=== PATIENT | female | born 1950 | race Asian ===

== ENCOUNTER → 2017-02-11 | Outpatient (CLI) | payer OTHER | END | disposition home or self-care (01) | LOC: MA 10:38 | DX: Z12.31 Encounter for screening mammogram for malignant neoplasm of breast (principal) | CPT/HCPCS: G0202 ==

== ENCOUNTER → 2017-06-23 | Outpatient (CLI) | payer OTHER ==
[2017-06-23 16:05] LABS: BASOPHIL % 0.3 % (0-2); PLATELET COUNT 329 x10^3mcL (130-400); RED CELL DISTRIBUTION WIDTH 13.6 % (11.5-14.5)
[2017-06-23 16:32] LABS: ALBUMIN 3.6 g/dL (3.4-5.0); ALKALINE PHOSPHATASE 85 U/L (46-116); ALT/SGPT 30 U/L (14-59); AST/SGOT 20 U/L (15-37); BILIRUBIN TOTAL 0.38 mg/dL (0.20-1.00); CARBON DIOXIDE 27.4 mmol/L (21-32); CHLORIDE SERUM 104 mmol/L (98-107); CREATININE SERUM 0.8 mg/dL (0.6-1.0); FREE T4 1.08 ng/dL (0.76-1.46); GFR1 > 60 mL/min; GLUCOSE SERUM 124 mg/dL (74-106); POTASSIUM SERUM 3.4 mmol/L (3.5-5.1); SODIUM SERUM 142 mmol/L (136-145)
[2017-06-23 16:33] LABS: TOTAL PROTEIN, SERUM 8.8 g/dL (6.4-8.2)
[2017-06-23 20:08] LABS: microscopic required? YES; urine erythrocyte TRACE (NEGATIVE)
== END | disposition home or self-care (01) ==
LOC: US 15:18
PROC: BW40ZZZ Ultrasonography of Abdomen (ICD-10-PCS; principal; 2017-06-23)
DX: R10.9 Unspecified abdominal pain (principal); K76.89 Other specified diseases of liver
CPT/HCPCS: 84439

== ENCOUNTER 2017-07-22 08:50 | Emergency (ER) | payer OTHER ==
[2017-07-22 09:36] LABS: CALCIUM 8.4 mg/dL (8.5-10.1); CHLORIDE SERUM 99 mmol/L (98-107); CREATININE SERUM 0.8 mg/dL (0.6-1.0); GFR1 > 60 mL/min; GLUCOSE SERUM 143 mg/dL (74-106); POTASSIUM SERUM 3.8 mmol/L (3.5-5.1); SODIUM SERUM 135 mmol/L (136-145)
[2017-07-22 09:39] LABS: BASOPHIL % 0.5 % (0-2); PLATELET COUNT 283 x10^3mcL (130-400); RED CELL DISTRIBUTION WIDTH 13.3 % (11.5-14.5)
[2017-07-22 09:40] LABS: ALBUMIN 3.7 g/dL (3.4-5.0); ALKALINE PHOSPHATASE 76 U/L (46-116); ALT/SGPT 36 U/L (14-59); AST/SGOT 32 U/L (15-37); BILIRUBIN TOTAL 0.56 mg/dL (0.20-1.00); LIPASE 171 IU/L (73-393)
[2017-07-22 12:44] VITALS: BP 121/87
== END 2017-07-22 12:54 | disposition home or self-care (01) ==
LOC: ED 08:50
PROVIDERS: Emergency Medicine
DX: R10.13 Epigastric pain (principal); I10 Essential (primary) hypertension; E78.00 Pure hypercholesterolemia, unspecified
CPT/HCPCS: J1885; J7030; Q0092; Q0162

== ENCOUNTER 2017-07-24 02:29 | Inpatient (IN) | payer OTHER ==
[~2017-07-24] VITALS: Ht 157.5 cm; Wt 76.2 kg
[2017-07-24 03:24] LABS: CALCIUM 8.3 mg/dL (8.5-10.1); CARBON DIOXIDE 29.5 mmol/L (21-32); CHLORIDE SERUM 100 mmol/L (98-107); CREATININE SERUM 0.8 mg/dL (0.6-1.0); GFR1 > 60 mL/min; GLUCOSE SERUM 140 mg/dL (74-106); POTASSIUM SERUM 4.3 mmol/L (3.5-5.1); SODIUM SERUM 134 mmol/L (136-145)
[2017-07-24 03:27] LABS: BASOPHIL % 0.4 % (0-2); PLATELET COUNT 294 x10^3mcL (130-400); RED CELL DISTRIBUTION WIDTH 13.5 % (11.5-14.5)
[2017-07-24 03:28] LABS: ALKALINE PHOSPHATASE 86 U/L (46-116); ALT/SGPT 38 U/L (14-59); AMYLASE 38 U/L (25-115); AST/SGOT 29 U/L (15-37); BILIRUBIN TOTAL 0.87 mg/dL (0.20-1.00); LIPASE 148 IU/L (73-393)
[2017-07-24 03:30] LABS: ALBUMIN 3.1 g/dL (3.4-5.0); TOTAL PROTEIN, SERUM 8.4 g/dL (6.4-8.2)
[2017-07-24 05:45] LABS: CHOLESTEROL/HDL RATIO 2.8; MAGNESIUM 2.6 mg/dL (1.8-2.4); PHOSPHOROUS 2.6 mg/dL (2.5-4.9)
[2017-07-24 05:53] LABS: T3 TOTAL 0.68 ng/mL
[2017-07-24 06:00] LABS: FREE T4 1.34 ng/dL (0.76-1.46); FREE THYROXINE INDEX 3.5 ug/dL (1.4-4.5); T4(THYROXINE) 9.4 ug/dL (4.7-13.3)
[2017-07-24] MEDS ORDERED: LOVASTATIN20 MG PO (07:44)
[2017-07-24] MEDS ORDERED: TOPROL XL25 MG PO (07:44)
[2017-07-24 08:11] VITALS: BP 121/80
[2017-07-24 09:30] VITALS: BP 121/80; BP 131/71
[2017-07-24 11:12] LABS: microscopic required? YES; urine erythrocyte TRACE (NEGATIVE)
[2017-07-24 17:27] VITALS: BP 109/79
[2017-07-24 23:01] VITALS: BP 113/76
[2017-07-25 06:10] VITALS: BP 129/72
[2017-07-25 06:33] LABS: PLATELET COUNT 290 x10^3mcL (130-400); RED CELL DISTRIBUTION WIDTH 14.3 % (11.5-14.5)
[2017-07-25 06:39] LABS: CALCIUM 7.4 mg/dL (8.5-10.1); CHLORIDE SERUM 106 mmol/L (98-107); CREATININE SERUM 0.7 mg/dL (0.6-1.0); GFR1 > 60 mL/min; GLUCOSE SERUM 121 mg/dL (74-106); MAGNESIUM 2.4 mg/dL (1.8-2.4); PHOSPHOROUS 1.6 mg/dL (2.5-4.9); POTASSIUM SERUM 3.7 mmol/L (3.5-5.1); SODIUM SERUM 138 mmol/L (136-145)
[2017-07-25 06:48] LABS: BASOPHIL % 0 % (0-2)
[2017-07-25 10:23] VITALS: BP 124/79
[2017-07-25 14:16] VITALS: BP 146/87
[2017-07-25 17:55] VITALS: BP 137/81
[2017-07-25 21:05] VITALS: BP 125/75
[2017-07-26 05:45] VITALS: BP 141/85
[2017-07-26 07:09] LABS: CALCIUM 7.6 mg/dL (8.5-10.1); CARBON DIOXIDE 26.3 mmol/L (21-32); CHLORIDE SERUM 107 mmol/L (98-107); CREATININE SERUM 0.7 mg/dL (0.6-1.0); GFR1 > 60 mL/min; GLUCOSE SERUM 117 mg/dL (74-106); MAGNESIUM 2.4 mg/dL (1.8-2.4); PHOSPHOROUS 1.5 mg/dL (2.5-4.9); POTASSIUM SERUM 3.9 mmol/L (3.5-5.1); SODIUM SERUM 142 mmol/L (136-145)
[2017-07-26 07:16] LABS: PLATELET COUNT 343 x10^3mcL (130-400)
[2017-07-26 07:20] LABS: BASOPHIL % 0 % (0-2)
[2017-07-26 10:15] VITALS: BP 133/85
[2017-07-26 13:58] VITALS: BP 144/83
[2017-07-26 17:57] VITALS: BP 129/77
[2017-07-26 21:20] VITALS: BP 129/64
[2017-07-27 06:17] VITALS: BP 140/78
[2017-07-27 07:01] LABS: BASOPHIL % 0.2 % (0-2); PLATELET COUNT 370 x10^3mcL (130-400); RED CELL DISTRIBUTION WIDTH 14.1 % (11.5-14.5)
[2017-07-27 07:32] LABS: CALCIUM 7.5 mg/dL (8.5-10.1); CARBON DIOXIDE 30.1 mmol/L (21-32); CHLORIDE SERUM 107 mmol/L (98-107); CREATININE SERUM 0.7 mg/dL (0.6-1.0); GFR1 > 60 mL/min; GLUCOSE SERUM 132 mg/dL (74-106); MAGNESIUM 2.2 mg/dL (1.8-2.4); PHOSPHOROUS 1.6 mg/dL (2.5-4.9); POTASSIUM SERUM 3.2 mmol/L (3.5-5.1); SODIUM SERUM 143 mmol/L (136-145)
[2017-07-27 08:50] VITALS: BP 138/81
[2017-07-27 12:34] VITALS: BP 120/73
[2017-07-27 16:42] VITALS: BP 117/72
[2017-07-27 20:41] VITALS: BP 115/76
[2017-07-28 05:18] VITALS: BP 139/83
[2017-07-28 08:00] VITALS: BP 139/85
[2017-07-28 09:00] VITALS: BP 152/86
[2017-07-28 10:37] VITALS: Ht 157.5 cm; Wt 76.2 kg
[2017-07-28] MEDS ORDERED: NORCO1 TA2 PO (10:46)
[2017-07-28] MEDS ORDERED: COL100 PO (11:10)
[2017-07-28] MEDS ORDERED: PEP20 PO (11:10)
[2017-07-28 12:00] VITALS: BP 133/81
[2017-07-28 12:05] VITALS: BP 152/86
[2017-07-28] MEDS ORDERED: PEPCID20 MG PO (13:20)
[2017-07-28] MEDS ORDERED: COLACE100 MG PO (13:20)
== END 2017-07-28 15:21 | disposition home or self-care (01) | DRG 853 ==
LOC: ED 02:29 → DU 04:58
PROVIDERS: Emergency Medicine; Family Medicine Sports Medicine; Surgery; ADMIT Family Medicine
PROC: 0FJ44ZZ Inspection of Gallbladder, Percutaneous Endoscopic Approach (ICD-10-PCS; 2017-07-24)
PROC: 0FT40ZZ Resection of Gallbladder, Open Approach (ICD-10-PCS; principal; 2017-07-24 12:00)
DX: A41.9 Sepsis, unspecified organism (principal); N17.0 Acute kidney failure with tubular necrosis; K80.00 Calculus of gallbladder with acute cholecystitis without obstruction; E87.1 Hypo-osmolality and hyponatremia; E44.0 Moderate protein-calorie malnutrition; N39.0 Urinary tract infection, site not specified; E83.41 Hypermagnesemia; E11.65 Type 2 diabetes mellitus with hyperglycemia; K75.81 Nonalcoholic steatohepatitis (NASH); K76.89 Other specified diseases of liver; I10 Essential (primary) hypertension; K21.9 Gastro-esophageal reflux disease without esophagitis; E78.5 Hyperlipidemia, unspecified; E87.6 Hypokalemia; D64.9 Anemia, unspecified; Z68.30 Body mass index [BMI] 30.0-30.9, adult; Z80.9 Family history of malignant neoplasm, unspecified
CPT/HCPCS: 82962; 83880; 84439; J0290; J0295; J0330; J0500; J0690; J1170; J1644; J2175; J2250; J2270; J2405; J2543; J2704; J2710; J3010; J3490; J7030; J7120; Q0092; Q0162

== ENCOUNTER → 2017-09-02 | Outpatient (CLI) | payer OTHER ==
[~2017-09-02] MED LIST: COL100 PO; COLACE100 MG PO; LOVASTATIN20 MG PO; NORCO1 TA2 PO; PEP20 PO; PEPCID20 MG PO; TOPROL XL25 MG PO
== END | disposition home or self-care (01) ==
LOC: US 08:53
PROC: BT43ZZZ Ultrasonography of Bilateral Kidneys (ICD-10-PCS; principal; 2017-09-02)
DX: N39.0 Urinary tract infection, site not specified (principal); N39.3 Stress incontinence (female) (male)

== ENCOUNTER → 2017-10-13 | Day surgery (SDC) | payer OTHER ==
[~2017-10-13] VITALS: Ht 157.5 cm; Wt 68.0 kg
[2017-10-13 06:57] VITALS: BP 128/70
[2017-10-13 09:28] VITALS: BP 129/87
== END | disposition home or self-care (01) ==
LOC: GI 06:20 → OR 07:30
PROVIDERS: Internal Medicine Gastroenterology
PROC: 0DJD8ZZ Inspection of Lower Intestinal Tract, Via Natural or Artificial Opening Endoscopic (ICD-10-PCS; principal; 2017-10-13 07:30)
DX: Z12.11 Encounter for screening for malignant neoplasm of colon (principal); K64.8 Other hemorrhoids; Z68.29 Body mass index [BMI] 29.0-29.9, adult
CPT/HCPCS: 45378; J1200; J1610; J2250; J2310; J3010; J3490

== ENCOUNTER 2019-02-23 12:26 | Emergency (ER) | payer OTHER ==
[~2019-02-23] VITALS: Ht 157.5 cm; Wt 73.9 kg
[2019-02-23 12:45] VITALS: Ht 157.5 cm; Wt 73.9 kg
[2019-02-23 17:51] VITALS: BP 133/81
== END 2019-02-23 17:51 | disposition home or self-care (01) ==
LOC: ED 12:26
DX: K59.00 Constipation, unspecified (principal); E78.00 Pure hypercholesterolemia, unspecified; I10 Essential (primary) hypertension; Z90.49 Acquired absence of other specified parts of digestive tract
CPT/HCPCS: Q0092

== ENCOUNTER → 2019-12-21 | Outpatient (CLI) | payer OTHER | END | disposition home or self-care (01) | LOC: CT 07:37 | PROC: BW201ZZ Computerized Tomography (CT Scan) of Abdomen using Low Osmolar Contrast (ICD-10-PCS; principal; 2019-12-21) | DX: R19.00 Intra-abdominal and pelvic swelling, mass and lump, unspecified site (principal) | CPT/HCPCS: Q9967 ==

== ENCOUNTER 2020-05-18 11:21 | Emergency (ER) | payer OTHER ==
[~2020-05-18] VITALS: Ht 162.6 cm; Wt 68.0 kg
[2020-05-18 11:32] VITALS: Ht 162.6 cm; Wt 68.0 kg
[2020-05-18 12:11] VITALS: BP 133/80
== END 2020-05-18 12:11 | disposition home or self-care (01) ==
LOC: ED 11:21
DX: H01.111 Allergic dermatitis of right upper eyelid (principal); H01.114 Allergic dermatitis of left upper eyelid; I10 Essential (primary) hypertension; E78.00 Pure hypercholesterolemia, unspecified; Z98.890 Other specified postprocedural states
CPT/HCPCS: J7512